=== PATIENT | female | born 1950 | race African-American/Black ===

== ENCOUNTER → 2017-09-06 | Outpatient (CLI) | payer OTHER | LOC: RAD 11:23 | DX: Z12.31 Encounter for screening mammogram for malignant neoplasm of breast (principal); M47.896 Other spondylosis, lumbar region ==

== ENCOUNTER → 2018-09-25 | Outpatient (CLI) | payer OTHER | LOC: BC 03:14 | DX: Z12.31 Encounter for screening mammogram for malignant neoplasm of breast (principal) ==

== ENCOUNTER 2019-01-19 08:53 | Inpatient (IN) | payer OTHER ==
[~2019-01-19] VITALS: Ht 160 cm; Wt 113.1 kg
[2019-01-19 09:27] LABS: ANION GAP 11 mmol/L (7-16); BUN 11 mg/dL (7-18); CALCIUM 9.4 mg/dL (8.5-10.1); CHLORIDE 102 mmol/L (98-107); CO2 26 mmol/L (21-32); CREATININE 0.9 mg/dL (0.6-1.0); GLUCOSE 147 mg/dL (74-106); POTASSIUM 3.4 mmol/L (3.5-5.1); SODIUM 139 mmol/L (136-145)
[2019-01-19 09:28] LABS: ABSOLUTE NEUTROPHILS 7.8 thou/uL (1.4-8.2); BASOPHILS 0.3 % (0.0-2.0); EOSINOPHILS 0.5 % (0.0-3.0); HEMATOCRIT 43.1 % (37.0-47.0); HEMOGLOBIN 14.3 gm/dL (12.0-15.0); LYMPHOCYTES 19.2 % (24.0-44.0); MCH 29.9 pg (26.0-34.0); MCHC 33.1 g/dL (28.0-37.0); MCV 90.2 fL (80.0-100.0); MONOCYTES 7.7 % (1.0-8.0); PLATELET COUNT 211 thou/uL (150-400); POLYS 72.3 % (36.0-66.0); RBC 4.78 mil/uL (4.20-5.00); RDW 16.3 % (10.5-14.5); WBC 10.8 thou/uL (4.0-11.0)
[2019-01-19 09:37] LABS: TROPONIN-I <0.06 ng/mL (<0.06)
[2019-01-19] MEDS ORDERED: HYDROCHLOROTHIA25 M2 PO (09:45)
[2019-01-19] MEDS ORDERED: VITAMIN D1000 UNI1 PO (09:46)
[2019-01-19] MEDS ORDERED: VITAMINC500 PO (09:46)
[2019-01-19] MEDS ORDERED: ALEVE220 MG PO (09:46)
[2019-01-19] MEDS ORDERED: VASOTEC10 MG PO (09:46)
[2019-01-19] MEDS ORDERED: KLOR-CON 1010 MEQ PO (09:46)
[2019-01-19] MEDS ORDERED: B-COMPLEX PLUS1 EACH PO (09:46)
--- NOTE | 2019-01-19 13:37 | EKG ---
[address] [place] [address] ELECTROCARDIOGRAM REPORT Name: MORENO VALVERDE Room #: 170-8 ADM IN M.R.#: [id number] ������������������ Admission: 01/19/19 ������������������ Attend Phys: Sumit Camilo DO Discharge: ������������������ Date of : 46 Report #: [id number] ����������������������������������������������������������������� [id number] THIS REPORT FOR: //name// [facility] Test Date: 2019-01-19 Test Time: 09:48:39 Pat Name: MORENO VALVERDE Department: Room: 170 Gender: F Technology Director: JESSICA : 1950 Requested By: Reyna Tirado Order Number: [id number] MD: David Barger Measurements Intervals Media Rate: 72 P: 28 VA: 124 QRS: 25 QRSD: 113 T: -11 QT: 414 QTc: 454 Interpretive Statements Sinus rhythm Premature atrial contractions present intraventricular conduction delay Low voltage, precordial leads Nonspecific ST-T wave changes No previous ECG available for comparison Electronically Signed On 01-19-2019 13:37:12 [employer] by David Barger [email or web address] ��������������������������������������������� <ELECTRONICALLY SIGNED> ���������������������������������������� By: David Barger MD ��������������������������������������������� 01/19/19 1337 7 David Barger MD /EPI
--- NOTE | 2019-01-19 14:31 | 2DMMODE ---
[facility] [employer] [place] [address] 2 D/M-MODE ECHOCARDIOGRAM Name: MORENO VALVERDE Room #: 170-8 ADM IN .R.#: [id number] ������������� Admission: 01/19/19 ������������� Attend Phys: Sumit Camilo, Discharge: ��� ������������� ��� Date of : 46 Date of Service: 01/19/19 1431 �� Report #: [id number] �������� ��������������������������������������������[id number] THIS REPORT FOR: //name// APPROVED REPORT Study performed: 01/19/2019 13:35:24 EXAM: Comprehensive 2D, Doppler, and color-flow Echocardiogram Patient Location: ER Status: routine BSA: 2.07 HR: 77 bpm BP: 113/54 mmHg Rhythm: NSR Other Information Study Quality: Poor/not all measurements takenTechnically Limited Technically limited study due to lung disease and artifact, morbid obesity. Indications CVA. Hx: HTN, tobacco abuse. 2D Dimensions RVDd: 29.13 mm IVSd: 12.29 (7-11mm) LVOT Diam: 19.77 (18-24mm) LVDd: 43.55 mm PWd: 12.13 (7-11mm) Ascending Ao: 30.61 (22-36mm) LVDs: 29.54 (25-40mm) Aortic Root: 29.94 mm Volumes Left Atrial Volume (Systole) Single Plane 4CH: 42.72 mL Aortic Valve AoV Peak Chan.: 1.59 m/s AO Peak Gr.: 10.14 mmHg LVOT Max P.20 mmHg LVOT Max V: 0.89 m/s UDAY Vmax: 1.72 cm2 Mitral Valve E/A Ratio: 0.9 [facility] [address] [place] [address] 2 D/M-MODE ECHOCARDIOGRAM Name: MORENO VALVERDE Room #: 170-8 ADM IN .R.#: [id number] ������������� Admission: 01/19/19 ������������� Attend Phys: Sumit Camilo, Discharge: ��� ������������� ��� Date of : 46 Date of Service: 01/19/19 1431 �� Report #: [id number] �������� ��������������������������������������������[id number] MV Decel. Time: 225.73 ms MV E Max Chan.: 0.80 m/s MV A Chan.: 0.91 m/s MV PHT: 65.46 ms IVRT: 69.20 ms Tricuspid Valve TR Peak Chan.: 2.87 m/s RAP Estimate: 5.00 mmHg TR Peak Gr.: 32.85 mmHg PA Pressure: 38.00 mmHg Left Ventricle The left ventricle is normal size. Regional wall motion is not well visualized but appears grossly normal. Mild concentric left ventricular hypertrophy. The overall left ventricular systolic function appears normal. LVEF is 60%. Mild diastolic dysfunction is present (impaired relaxation pattern). Right Ventricle Right ventricle is not well visualized but appears grossly normal in size and function. Atria The left atrium size is normal. Suboptimal images; bubble study not performed. The right atrium size is normal. Aortic Valve The aortic valve is grossly normal in structure. No aortic regurgitation is present. There is no aortic valvular stenosis. Mitral Valve The mitral valve is grossly normal in structure. There is no mitral valve regurgitation noted. No evidence of mitral valve stenosis. Tricuspid Valve The tricuspid valve is normal in structure. Mild tricuspid regurgitation. Estimated PAP is 35-40mmHg. Pulmonic Valve Pulmonic valve is not well visualized. Great Vessels The aortic root is normal in size. The ascending aorta is normal in size. IVC is normal in size and collapses >50% with [facility] [address] [place] [address] 2 D/M-MODE ECHOCARDIOGRAM Name: MORENO VALVERDE Room #: 170-8 ADM IN M.R.#: [id number] ������������� Admission: 01/19/19 ������������� Attend Phys: Sumit Camilo, Discharge: ��� ������������� ��� Date of : 46 Date of Service: 01/19/19 1431 �� Report #: [id number] �������� ��������������������������������������������[id number] inspiration. Pericardium There is no pericardial effusion. <Conclusion> The left ventricle is normal size. LVEF is 60%. Right ventricle is not well visualized but appears grossly normal in size and function. The aortic valve is grossly normal in structure. The mitral valve is grossly normal in structure. The tricuspid valve is normal in structure. Mild tricuspid regurgitation. Estimated PAP is 35-40mmHg. Pulmonic valve is not well visualized. The aortic root is normal in size. The ascending aorta is normal in size. There is no pericardial effusion. ��������������������������������������������� <ELECTRONICALLY SIGNED> ���������������������������������������� By: David Barger MD ��������������������������������������������� 01/19/19 1431 1431 1431 David Barger MD /INF
[2019-01-19 15:14] LABS: URINE BLOOD 1+ (Negative); URINE CLARITY CLEAR; URINE COLOR YELLOW; URINE GLUCOSE-RANDOM* NEGATIVE (Negative); URINE KETONES 2+ (Negative); URINE LEUKOCYTES 2+ (Negative); URINE NITRITE NEGATIVE (Negative); URINE PROTEIN (DIPSTICK) 1+ (Negative); URINE UROBILINOGEN >= 8.0 E.U./dl (0.2-1.0)
[2019-01-19 15:16] LABS: ICTOTEST (BILI CONFIRMATORY) Negative (Negative); URINE BILIRUBIN NEGATIVE (Negative)
[2019-01-19 15:32] LABS: AMORPHOUS PHOSPHATES Many /LPF (None Seen); CASTS None Seen /LPF (None Seen); MUCUS >6 Heavy strn/LPF (None Seen); SQUAMOUS >10 Many /LPF (0-3); URINE RBC 3-10 Few /HPF (0-2); URINE WBC 6-15 Few /HPF (0-5)
[2019-01-19 19:03] VITALS: BP 130/61
[2019-01-19 19:35] VITALS: BP 131/65
[2019-01-19 23:06] LABS: GLYCOHEMOGLOBIN (HGB A1C) 5.9 % (4.8-5.6)
[2019-01-20] VITALS: BP 132/69
[2019-01-20 04:27] VITALS: BP 150/77
[2019-01-20 06:20] LABS: HEMATOCRIT 39.2 % (37.0-47.0); HEMOGLOBIN 12.7 gm/dL (12.0-15.0); MCH 29.9 pg (26.0-34.0); MCHC 32.5 g/dL (28.0-37.0); MCV 92.1 fL (80.0-100.0); RBC 4.26 mil/uL (4.20-5.00); RDW 16.5 % (10.5-14.5); WBC 9.1 thou/uL (4.0-11.0)
[2019-01-20 06:43] LABS: ALBUMIN 3.2 g/dL (3.4-5.0); CALCIUM 8.3 mg/dL (8.5-10.1); CREATININE 0.7 mg/dL (0.6-1.0); MAGNESIUM 1.9 mg/dL (1.8-2.4); POTASSIUM 3.8 mmol/L (3.5-5.1); TOTAL BILIRUBIN 0.8 mg/dL (<0.1-1.0); TOTAL PROTEIN 7.3 g/dL (6.4-8.2)
--- NOTE | 2019-01-20 06:45 | NUR ---
PT MAKING SLOW PROGRESS TOWARDS GOALS. BRIEF NIH DONE WITH SCORE OF 4. PT RIGHT SIDED WEAK WITH RLE MUCH WEAKER THEN RUE. SPEECH IS SLURRED BUT INTELLIGIBLE. NOTED MRI RESULTS.
[2019-01-20 06:50] LABS: CHOLESTEROL 180 mg/dL (<200); HDL CHOLESTEROL 55 mg/dL (>40); LDL CHOLESTEROL 113 mg/dL (<100); TC:HDL 3.3 Ratio (Not establshd); TRIGLYCERIDE 62 mg/dL (<150); VLDL 12 mg/dL (<40)
[2019-01-20 08:02] VITALS: BP 153/90; BP 153/99
--- NOTE | 2019-01-20 10:51 | HC ---
[facility] [place] [address] CONSULTATION Name: MORENO VALVERDE Room #: 358-P ADM IN M.R.#: [id number] Admission: 01/19/19 ������������������ Attend Phys: Sumit Camilo DO Discharge: ������������������ Date of : 46 Report #: [id number] THIS REPORT FOR: //name// CC: Sumit Smith TYPE OF REPORT: Neurology consultation. HISTORY OF PRESENT ILLNESS: The patient is a 68-year-old female, I initially saw in the Emergency Room. The patient complains of 2 days of generalized weakness and slurred speech. These symptoms began on Tuesday morning when she woke. There has been no improvement in them since they began. The patient does not take a blood thinner. She does smoke a pack of cigarettes a day. Her was in the room, he does not smoke. She admits to having hypertension but denied having diabetes or high cholesterol. She has never had an event like this before. Overall, she feels that her legs are generally weak and one leg does not necessarily bother her more than another. She also feels that her arms are weak but for the past 2 days has had difficulty feeding herself with her right arm because of weakness. PAST MEDICAL HISTORY: Hypertension. PAST SURGICAL HISTORY: Unremarkable. MEDICATIONS: Hydrochlorothiazide 25 mg daily, Vasotec 20 mg daily, naproxen 220 mg t.i.d., vitamin C 500 mg daily, B vitamin daily, vitamin D 1000 units daily and potassium 10 mEq daily. ALLERGIES: CODEINE and ERYTHROMYCIN. PHYSICAL EXAMINATION: VITAL SIGNS: Blood pressure 113/54, pulse rate 79, respiratory rate 16 and bedside pulse oximetry 96% on room air. NEUROLOGICAL: The patient has a right facial droop. Motor exam demonstrates a moderate right hemiparesis. The leg is more affected than the arm. Plantar responses were mute. Reflexes were symmetrical throughout. Coordination demonstrated no evidence of dysmetria, although it was performed more slowly in the right upper extremity. Gait was not tested. LABORATORY DATA: White blood cell count 10.8; hemoglobin 14.3; hematocrit 43.1; MCV 90.2 and platelet count 211,000. Chemistry: Sodium 139, potassium 3.4, chloride 102, carbon dioxide 26, BUN 11, creatinine 0.9, GFR 75, glucose 147, magnesium 1.7 and calcium 9.4. Vitamin B12 1180. TSH 1.836. [address] [address] CONSULTATION Name: MORENO VALVERDE Room #: 358-P [facility] IN .R.#: [id number] Admission: 01/19/19 ������������������ Attend Phys: Sumit Camilo DO Discharge: ������������������ Date of : 46 Report #: [id number] IMAGING STUDIES: MRI of the head demonstrates a left pontine nlece-bp-mmhihlyx infarct. MRA of the head was limited secondary to motion artifact, but no definite intracranial vascular lesions were identified. 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 We discussed the fact that this might be a good time to reconsider smoking. I explained to her that smoking increases her risk for stroke. Her blood pressure appears to be well controlled; however, reviewing her lab work, I am concerned she may have diabetes and we will order a hemoglobin A1c in addition to a lipid profile to look for other causes of stroke. At this point, I would recommend aspirin 81 mg daily. I have also ordered an echocardiogram. She will also need physical therapy as I suspect there is also a component of deconditioning. She tells me that she has significant arthritis in her knees and that makes it difficult for her to exercise. I thank you for your kind referral of the patient and will continue to follow her with you. ��������������������������������������������� <ELECTRONICALLY SIGNED> ���������������������������������������� By: Debbie Robin DO ��������������������������������������������� 01/20/19 1051 1322 0056 Debbie Robin DO /nt
[2019-01-20 15:08] VITALS: BP 134/70
--- NOTE | 2019-01-20 19:37 | NUR ---
PATIENT ALERT AND ORIENTED WITH AT BEDSIDE. PATIENT OFFERED TO GET UP TO CHAIR SEVERAL TIMES DURING THE DAY AND EXPLAINED BENEFITS OF ACTIVITY AND GETTING OUT OF BED, BUT THE PATIENT REFUSED. PATIENT IS COMPLIANT IN USING SCD'S.
[2019-01-20 20:48] VITALS: BP 143/77
[2019-01-20 23:52] VITALS: BP 148/73
[2019-01-21 03:49] VITALS: BP 155/85
--- NOTE | 2019-01-21 05:43 | NUR ---
PT LYING IN BED. DENIES PAIN. DENIES NAUSEA. RESTING COMFORTABLY. NO NEEDS VOICED. CALL LIGHT WITHIN REACH. WILL CONTINUE TO PROVIDE FREQUENT OBSERVATION.
[2019-01-21 08:38] VITALS: BP 131/67
[2019-01-21 11:34] VITALS: BP 126/65
[2019-01-21 15:38] VITALS: BP 144/74
--- NOTE | 2019-01-21 18:01 | NUR ---
ASSUMED PATIENT CARE AT 0700. A/O X4, SLURRED SPEECH. PATIENT TOLERATED DIET. NIH X3. RIGHT LEG WEAK. MAX ASSISTED WHEN UP. SLOWLY TOARDS POC GOALS.
[2019-01-21 19:25] VITALS: BP 115/69
[2019-01-22 04:30] VITALS: BP 147/79
--- NOTE | 2019-01-22 06:02 | NUR ---
PT LYING IN BED. DENIES PAIN. RESTING COMFORTABLY. NO NEEDS VOICED. CALL LIGHT WITHIN REACH. WILL CONTINUE TO PROVIDE FREQUENT OBSERVATION.
[2019-01-22 07:59] VITALS: BP 125/65
[2019-01-22 10:16] LABS: HEMATOCRIT 40.1 % (37.0-47.0); HEMOGLOBIN 13.5 gm/dL (12.0-15.0); MCH 30.6 pg (26.0-34.0); MCHC 33.6 g/dL (28.0-37.0); MCV 91.2 fL (80.0-100.0); RBC 4.39 mil/uL (4.20-5.00); RDW 16.4 % (10.5-14.5); WBC 10.7 thou/uL (4.0-11.0)
[2019-01-22 10:31] LABS: ALBUMIN 3.1 g/dL (3.4-5.0); CALCIUM 8.8 mg/dL (8.5-10.1); CREATININE 0.9 mg/dL (0.6-1.0); MAGNESIUM 1.7 mg/dL (1.8-2.4); POTASSIUM 3.9 mmol/L (3.5-5.1); TOTAL BILIRUBIN 0.6 mg/dL (<0.1-1.0); TOTAL PROTEIN 7.5 g/dL (6.4-8.2)
--- NOTE | 2019-01-22 13:01 | NUR ---
ASSESSMENT: CM REVIEWED CHART AND MET WITH PATIENT AT THE BEDSIDE. PTS WAS PRESENT. PT WAS ADMITTED WITH SLURRED SPEECH AND RIGHT SIDED WEAKNESS. PT LIVES IN A TOWNHOUSE WITH HER . PT REPORTS NO STEPS TO ENTER THE TOWNHOME AND ABOUT 15 STEPS WITH HANDRAILS TO THE UPPER LEVEL. PT REPORTS SHE NORMALLY SLEEPS ON THE COUCH SO SHE DOES NOT HAVE TO USE THE STEPS. PT REPORTS THAT SHE AMBULATES INDEPENDENTLY BUT DOES HAVE A WALKER AT HOME SHE DOES NOT USE. PT REPORTS THAT SHE IS INDEPENDENT WITH ADLS. PT HAS NO HAD HH IN THE PAST NOR BEEN TO A SNF. 5N CONSULT WAS PLACED FOR PATIENT AND SHE IS A GOOD CANIDATE. PT WANTS TO DISCHARGE TO 5[facility] IF HER INSURANCE WILL AUTHORIZE IT. CM WILL CONTINUE TO FOLLOW TO ASSIST NEEDED.
[2019-01-22 15:19] VITALS: BP 114/74
--- NOTE | 2019-01-22 18:09 | NUR ---
ASSUMED PAIENT CARE AT 0700, A/O 4. RIGHT LEG WEAKNESS. MAX ASSISTED OUT OF BED. INCONTIUNE URINE. PATIENT VERY ANXIOS WITH TRANSFER, NOT TOWARDS POC GOALS,
[2019-01-22 20:05] VITALS: BP 135/81
[2019-01-23 03:35] VITALS: BP 139/65
--- NOTE | 2019-01-23 07:38 | NUR ---
SLEPT MOST OF SHIFT. REMAINS WITH SLURRED SPEECH BUT ALERT AND ORIENTED X4. PATIENT ASSIST'S WITH TURNS. VSS. FEMAL CATH CHANGED AT 0500 AND BRANDON CARE GIVEN. WORKING ON GOALS AND PLAN OF CARE FOR TRANSFER TO REHAB. PROGRESSING SLOWLY TOWARDS DISCHAREG GOALS. CONTINUE TO ASSES.
[2019-01-23 07:44] VITALS: BP 139/91
[2019-01-23] MEDS ORDERED: ATORVASTATIN CA10 MG PO (10:01)
[2019-01-23] MEDS ORDERED: ADULT LOW DOSE81 MG PO (10:01)
--- NOTE | 2019-01-23 10:39 | NUR ---
ASSUMED PATIENT CARE AT 0715. A&OX4. SOME PAIN BLE. NUMBNESS IN RIGHT LEG AND FINGERTIPS. NIH AT 5. NO CHANGES IN NIH FROM OVERNIGHT. PLAN IS TO DISCHARGE TO INPATIENT REHAB TODAY, WAITING ON INSURANCE AUTH. PATIENT WOULD BENEFIT GREATLY FROM REHAB. PATIENT WANTING TO GO TO REHAB. PHYSICAL THERAPY GOT PATIENT UP TO CHAIR. PROGRESSING TOWARD GOALS.
--- NOTE | 2019-01-23 13:36 | NUR ---
on-going assessment: cm reviewed chart and met with patient at the bedside. CM SPOKE WITH LIASON FROM WHO STATES THEY HAVE RECEIVED INSURANCE AUTH TO ACCEPT PATIENT TODAY. CM NOTIFIED PATIENT AND HER . PLANS ARE TO DISCHARGE TO ACUTE REHAB TODAY.
[2019-01-23 14:27] VITALS: BP 135/87
== END 2019-01-23 16:30 | DRG 65 ==
LOC: ER 08:53 → 3W 10:20 → EROBS 10:20 → 3W 18:49
PROVIDERS: Internal Medicine Geriatric Medicine; Nurse Practitioner Family; Psychiatry & Neurology Neurology; Student in an Organized Health Care Education/Training Program; ADMIT Family Medicine
DX: I63.9 Cerebral infarction, unspecified (principal); Z68.41 Body mass index [BMI] 40.0-44.9, adult; G81.91 Hemiplegia, unspecified affecting right dominant side; I10 Essential (primary) hypertension; F17.210 Nicotine dependence, cigarettes, uncomplicated; E66.9 Obesity, unspecified; E55.9 Vitamin D deficiency, unspecified; E87.6 Hypokalemia; R73.9 Hyperglycemia, unspecified; R13.10 Dysphagia, unspecified; M17.0 Bilateral primary osteoarthritis of knee; Z79.899 Other long term (current) drug therapy; Z88.1 Allergy status to other antibiotic agents; Z88.5 Allergy status to narcotic agent
CPT/HCPCS: 10879

== ENCOUNTER 2019-01-23 12:33 | Inpatient (IN) | payer OTHER ==
[~2019-01-23] VITALS: Ht 160 cm; Wt 112.0 kg
[~2019-01-23 12:33] MED LIST: ADULT LOW DOSE81 MG PO; ALEVE220 MG PO; ATORVASTATIN CA10 MG PO; B-COMPLEX PLUS1 EACH PO; HYDROCHLOROTHIA25 M2 PO; KLOR-CON 1010 MEQ PO; VASOTEC10 MG PO; VITAMIN D1000 UNI1 PO; VITAMINC500 PO
[2019-01-23 16:29] VITALS: BP 125/70
[2019-01-23 19:52] VITALS: BP 115/62
--- NOTE | 2019-01-24 01:27 | NUR ---
PT ADMITTED TO [address] [place] [address] AFTER HAVING A STROKE. ADMIT HX AND ASSESSMENT COMPLETED. CONSENTS SIGNED. PT DENIES PAIN/N/SOA. ASST WITH REPOSITION FOR COMFORT. EXTERNAL FEMALE CATH DRAINING LARGE AMOUNTS OF YELLOW URINE. SLEEPING WELL. WILL CONTINUE TO MONITOR FREQUENTLY.
[2019-01-24 05:17] LABS: HEMATOCRIT 41.6 % (37.0-47.0)
[2019-01-24 05:18] LABS: HEMOGLOBIN 13.9 gm/dL (12.0-15.0); MCH 30.6 pg (26.0-34.0); MCHC 33.5 g/dL (28.0-37.0); MCV 91.5 fL (80.0-100.0); RBC 4.55 mil/uL (4.20-5.00); RDW 16.1 % (10.5-14.5); WBC 23.2 thou/uL (4.0-11.0)
[2019-01-24 05:24] LABS: CALCIUM 8.9 mg/dL (8.5-10.1); CREATININE 0.6 mg/dL (0.6-1.0)
[2019-01-24 05:43] LABS: POTASSIUM 4.6 mmol/L (3.5-5.1)
[2019-01-24 07:41] VITALS: BP 106/69
--- NOTE | 2019-01-24 14:49 | NUR ---
Nutrition: Pt admit to rehab with acute CVA. Received consult. On heart healthy diet, dislikes food. Aware of alternative menu. Obtained preferences and assisted in ordering meals. Otherwise appetite is good. Extreme class 3 obesity with BMI 43. Offered dietary education but pt refused at this time. Several guests in room. Will follow for receptiveness to education at later date. Consider low nutrition risk.
--- NOTE | 2019-01-24 15:27 | NUR ---
CM assessment completed at bedside with the pt and her spouse. The pt was admitted to rehab for a cva with rt hemiparesis.Cdl B Driver also spoke with the pt's dtr Sanjuanita with pt consent. Sanjuanita lives in [facility] and will be coming in town Tuesday thru Tuesday to see how the pt is progressing. She will also be talking with the pt about moving back to [facility] to live with her so she can help take care of her. Currently the pt and her spouse live in a [facility] with no steps to enter and 15 up to the bedroom and full bathroom. She reports that she has not been able to do the steps for more than a year and she uses a 1/2 bath on the main level and sleeps on the couch. She has a rolator walker (4wheels/seat) but does not really use it much. She has had increasing struggles with her bilat knee pain which also has limited her ability to be active outside her home. She does continue to do basic adl's, cooking and laundry within the home. She smokes a pack a day and has been counseled to stop smoking. Her pcp is Dr. Smith. She has had steriod shots in her knees as she has not wanted to have knee replacement surgery. Her spouse does the grocery shopping. The pt has a hx of some urinary incontinence prior to admission. Pt's goal is to return home to her prior level of functioning. Limiting issues today is her ankle/foot pain (r/o gout). The pt's dtr does have a home with a bedroom and full bath on the main level if she chooses to go home with her at ne. They will discuss as a family this weekend. Dtr to bring in the pt's dpoa for HC document. Cm to call the pt's dtr after team conference with an update as well as to update the pt and spouse. The pt is agreeable for cm to involve her dtr in ne planning efforts.
--- NOTE | 2019-01-24 16:43 | NUR ---
ASSUMED CARE AT APPROX 0715. PATIENT A/O X4. SLURRED SPEECH NOTED, RT SIDED WEAKNESS. PATIENT TRANSFERS MAX A 2-3 PERSONS, SLIDE BOARD, BED <> WC. MINIMAL PARTICIPATION IN THERAPY THIS DATE R/T PAIN. PROVIDER NOTIFIED, ORDERS FOR TOPICAL PAIN MEDS RECEIVED- PATIENT REPORTED SHE WOULD REFUSE NARCOTIC MEDICATIONS. PATIENT TOLERATED VOLTAREN GEL, REPORTS RELIEF OF BILATERAL ANKLE AND KNEE PAIN. PATIENT TOILETED [place] [facility] THIS DATE, URINE NOT COLLECTED AT THAT TIME, AWAITING URINE SAMPLE FOR UA. PATIENT AWARE. REFUSED TOILETING THIS AFTERNOON, EXTERNAL CATHETER IN PLACE TO SUCTION. 300 ML CLEAR YELLOW URINE OUT THUS FAR. FALL PRECAUTIONS IN PLACE. PATIENT TURNED Q2 WHILE IN BED. WILL CONTINUE TO MONITOR.
[2019-01-24 20:27] VITALS: BP 106/88
--- NOTE | 2019-01-25 02:59 | NUR ---
TURNED TO SIDE. DECLINES OPIOD MEDS, WE PLAN NAPROSYN IN AM PRIOR TO PT. EXTERNAL CATH IN PLACE WITH CLEAR YELLOW/CHET URINE. PLEASANT AND RESTING WELL. APPRECIATES VOLTAREN GEL TO LOWER EXTREMITIES.
[2019-01-25 05:21] LABS: URINE BILIRUBIN NEGATIVE (Negative); URINE BLOOD NEGATIVE (Negative); URINE CLARITY CLEAR; URINE COLOR YELLOW; URINE GLUCOSE-RANDOM* NEGATIVE (Negative); URINE KETONES NEGATIVE (Negative); URINE LEUKOCYTES-REFLEX NEGATIVE (Negative); URINE NITRITE-REFLEX NEGATIVE (Negative); URINE PROTEIN (DIPSTICK) NEGATIVE (Negative); URINE UROBILINOGEN 0.2 E.U./dl (0.2-1.0)
[2019-01-25 08:49] VITALS: BP 123/65
--- NOTE | 2019-01-25 10:53 | NUR ---
ASSUMED CARE AT APPROX 0715. PATIENT A/O X4. C/O PAIN IN BILATERAL LOWER EXTREMITIES. VOLTAREN GEL APPLIED. MEDICATED FOR PAIN PRIOR TO THERAPY. VSS. PARTICIPATING IN THERAPIES, REPORTEDLY TRANSFERING BETTER. PATIENT UP TO WHEELCHAIR X2 ASSIST, 2 PERSON ASSIST IN BATHROOM. PROVIDER ORDERED CXR AND LABS, UA NEGATIVE. PATIENT RESTING IN BED ON RIGHT SIDE AT THIS TIME. BRIEFS OFF, EXTERNAL CATH IN PLACE WHILE IN BED. FALL PRECAUTIONS IN PLACE. WILL CONTINUE TO MONITOR.
[2019-01-25 11:09] LABS: ABSOLUTE NEUTROPHILS 8.6 thou/uL (1.4-8.2); BASOPHILS 0.4 % (0.0-2.0); HEMATOCRIT 40.5 % (37.0-47.0); HEMOGLOBIN 13.4 gm/dL (12.0-15.0); LYMPHOCYTES 15.6 % (24.0-44.0); MCH 29.9 pg (26.0-34.0); MCHC 33.2 g/dL (28.0-37.0); MCV 90.1 fL (80.0-100.0); MONOCYTES 4.9 % (1.0-8.0); POLYS 78.1 % (36.0-66.0); RBC 4.49 mil/uL (4.20-5.00); RDW 15.8 % (10.5-14.5)
[2019-01-25 12:08] LABS: PLATELET COUNT 186 thou/uL (150-400)
--- NOTE | 2019-01-25 16:04 | NUR ---
cm notified that pt and wanted to speak with cm and had question. already gone for now. cm called spoke with milton, "got wind of some information and it is ok for daughter jason to have limited information, how ever no changes and all decision go through johnna and i. i am her dpoa first and then daughter jason"/milton and pt. education that as long as johnna is able to make her needs know, decision will go through pt. if for some reason a pt was unable to make needs know, that is when dpoa is used " understand thank you for calling"/milton. cm passed on information to 5n team. will cont following as needed for dc need.
[2019-01-25 20:01] VITALS: BP 116/52
--- NOTE | 2019-01-26 03:04 | NUR ---
Assumed care of pt at 1915. Pt alert and oriented x4. IV antibiotics infused as ordered. Denies cough or shortness of air. Turned q 2 hrs. External catheter on, leaking at times. Pt c/o pain in bilat knees, ankles, and toes. Voltaren gel applied as ordered. Has appeared to be sleeping when chaecked on hourly rounds. Fall precautions in place.
[2019-01-26 08:30] VITALS: BP 121/74
--- NOTE | 2019-01-26 16:57 | NUR ---
ASSUMED CARE OF PT AT 0715. PT IS A&OX4. HAS SOME SLURRED SPEECH, BUT IS ABLE TO MAKE HERSELF UNDERSTOOD. PT IS STABLE. DENIES PAIN. IS UP WITH MAX ASSIST X2, GB, WAKER. PT HAS TO BE REMINDED TO NOT SIT DOWN UNTIL ABLE TO FEEL THE CHAIR ON THE BACK OF HER LEGS. PT TENDS TO JUST FLOP DOWN BEFORE BEING IN PROPER POSITION. FALL PRECAUTIONS & HOURLY ROUNDING MAINTAINED. PT REFUSED AFTERNOON THERAPY. INSISTED ON GOING TO BED EARLY. IS Q2H TURN. IS ABLE TO ASSIST WITH TURNING SELF IN BED. LABS & VITALS REVIEWED. PT IS CURRENTLY IN BED. CALL LIGHT WITHIN REACH. WILL CONTINUE TO MONITOR.
[2019-01-26 21:00] VITALS: BP 129/44
--- NOTE | 2019-01-27 03:28 | NUR ---
ASSUMED CARE OF PT AT 1915. PT ALERT AND ORIENTED X4. UP TO BSC DURING EVENING HOURS, VOIDED CLEAR YELLOW URINE. EXTERNAL CATH APPLIED DURING THE NIGHT. TURNED Q 2 HRS. IV ANTIBIOTICS INFUSED ORDERED. DENIES PAIN, NAUSEA OR DYPSNEA. HAS APPEARED TO BE SLEEPING WHEN CHECKED ON HOURLY ROUNDS. FALL PRECAUTIONS IN PLACE.
[2019-01-27 07:30] VITALS: BP 120/70
[2019-01-27 08:48] LABS: HEMATOCRIT 38.8 % (37.0-47.0); HEMOGLOBIN 13.1 gm/dL (12.0-15.0); MCH 30.2 pg (26.0-34.0); MCHC 33.7 g/dL (28.0-37.0); MCV 89.5 fL (80.0-100.0); RBC 4.34 mil/uL (4.20-5.00); RDW 15.4 % (10.5-14.5); WBC 10.8 thou/uL (4.0-11.0)
[2019-01-27 08:56] LABS: CALCIUM 9.2 mg/dL (8.5-10.1); CREATININE 0.8 mg/dL (0.6-1.0); POTASSIUM 3.9 mmol/L (3.5-5.1)
--- NOTE | 2019-01-27 19:46 | NUR ---
ASSUMED CARE OF PT AT 0715. REPORTS SLEPT GOOD LAST NIGHT. PT WAS ON EXTERNAL CATH LAST NIGHT AND HAD 800CC CHET URINE THIS AM.PT IS A&OX4. HAS SOME SLURRED SPEECH, BUT IS ABLE TO MAKE HERSELF UNDERSTOOD. PT UP WITH MAX ASSIST WITH X1 0R X2, GB, WAKER. OT GOT PT UP AND GAVE SPONGE BATH. PT C/O CONSTIPATION. GAVE PRN LAXATIVE HAD BM X2 TODAY. REASSESSMENT PER CHART. FALL PRECAUTIONS & HOURLY ROUNDING MAINTAINED. Q2H TURN. PT HAS BEEN UP FOR THERAPY AND WAS UP FOR BATHROOM 5X TODAY. UP TO DINNING ROOM FOR MEALS. HAS GOOD APPETITE. DENIES PAIN. ONLY HAS PAIN ON FEET WHEN STANDING. IS ABLE TO ASSIST WITH TURNING SELF IN BED. LABS & VITALS REVIEWED. DR. PIMENTEL CAME TO SEE PT THIS AM. D/C IV ZOSYN AND START PT ON PO ABT TODAY. IV ON RIGHT FA D/C PER PT REQUEST. XRAY DONE TODAY TO FOLLOW UP WITH PREVIOUS PNEUMONIA. GAVE REPORT TO NIGHT NURSE TO CONTINUE TO MONITOR. PT IS CURRENTLY IN BED. CALL LIGHT WITHIN REACH. CHECKED FREQUENTLY FOR NEEDS AND SAFETY.
[2019-01-27 20:31] VITALS: BP 163/66
--- NOTE | 2019-01-28 06:00 | NUR ---
SLEEPING WELL OVERNIGHT WITH EXTERNAL CATHETER IN PLACE. REMOVED AT THIS TIME PATIENT HAS SUDDENLY HAD MODERATE SOFT BROWN STOOL. APPRECIATES VOLTAREN GEL TO KNEES AND ANKLES.
[2019-01-28 09:47] VITALS: BP 121/61
--- NOTE | 2019-01-28 11:06 | NUR ---
ASSUMED CARE OF PT AT 0730. PT IS A&OX4. HAS SLURRED SPEECH, BUT IS ABLE TO BE UNDERSTOOD. PT IS STABLE. REPORTS PAIN IN BILAT KNEES, ANKLES, & TOES THAT IS BEING TREATED WITH VOLTAREN. PT WOULD LIKE TO SPEAK WITH DOCTOR ABOUT TAKING A STRONGER PAIN MED THAT IS NOT A NORCOTIC. PT IS UP WITH 1-2 MAX ASSIST, GB. WALKER TO BSC. PT MUST BE ENCOURAGED TO BE IN PROPER POSITION BEFORE SITTING. FALL PRECAUTIONS & HOURLY ROUNDING CONTINUED THIS SHIFT. PT IS INCONT TO B&B. IS Q2H TURN, BUT IS ABLE TO ASSIST WITH MOVING SELF IN BED. LABS & VITALS REVIEWED. DAUGHTER & GRAND-DAUGHTER IN ROOM. WILL CONTINUE TO MONITOR.
[2019-01-28 19:43] VITALS: BP 137/59
--- NOTE | 2019-01-29 04:07 | NUR ---
ASSUMED PT CARE 0. PT ALERT AND ORIENTED. REASSESSMENT COMPLETED. VSS. PT REPORTS PAIN IN KNEES, ANKLES AND TOES. FEMALE EXTERNAL CATHETER APPLIED AT BEDTIME. WILL CONTINUE POC UNTIL EOS.
--- NOTE | 2019-01-29 08:38 | NUR ---
ASSUMED CARE OF PT AT 0730. REPORTS SLEPT GOOD LAST NIGHT. USES EXTERNAL FEMALE CATH AT NIGHT. PT IS A&OX4. HAS SLURRED SPEECH, BUT IS ABLE TO BE UNDERSTOOD. REPORTS PAIN IN ANKLES & TOES 8/10 VOLTAREN GIVEN. RIGHT ANKLE WARM. PT SAID SHE FELL COUPLE TIME PRIOR ADMISSION. NOTIFIED WHEN HE MADE ROUND. XRAY OBTAINED FOR PAIN AFTER PRIOR FALL AT HOME. PT IS UP WITH 1 MAX ASSIST, GB. WALKER TO [facility] [place] FEET PAIN. PT MUST BE ENCOURAGED TO BE IN PROPER POSITION BEFORE SITTING. FALL PRECAUTIONS & HOURLY ROUNDING CONTINUED THIS SHIFT. OFFER TOILETING FREQUENTLY SINCE PT IS INCONT TO B&B. VITALS REVIEWED. B/P 114/58,HR 73. HELD B/P MEDS ORDERED. GAVE MORNING MEDS. REASSESSMENT PER CHART. LUNGS DIMINISHED. CONTINUE TO BE ON ORAL ABT FOR PNA WITHOUT ADVERSE REACTION NOTED. PT IS UP TO DINNING ROOM FOR BREAKFAST. ST IS WORKING ON HER VITAL STIM AT THIS MOMENT. IS WITH PT. FALL PRECAUTION IN PLACE. WILL CONTINUE TO MONITOR.
[2019-01-29 09:45] VITALS: BP 114/58
--- NOTE | 2019-01-29 14:29 | NUR ---
love notified by bedside nurse that pt and wanted to talk about dcp. love spoke with johnna, " my just left you can call him on his cell"/johnna. love spoke with milton " after visiting with our daughter there is come equip what to go head and get for her at home to make easier, she is not going to be able to seep on polo coach any longer and would like her to get hospital bed. when do you think she will be dc home?"/milton. education on team meeting and will be communication with team on what kids of dme she will benefit from at home. " ok then thank you, will talk tomorrow after the meeting"/milton
[2019-01-29 19:30] VITALS: BP 137/67
--- NOTE | 2019-01-30 01:30 | NUR ---
UP TO BS FOR 200 CC VOID, OTHERWISE USING EXTERNAL CATHETER OVERNIGHT. TURNED TO RIGHT SIDE BY HERSELF AND THIS MORNING WITH A LITTLE HELP AND A PILLOW TO KEEP IN PLACE ON SIDE,
--- NOTE | 2019-01-30 08:36 | NUR ---
ASSUMED CARE OF PT AT 0730. REPORTS SLEPT GOOD LAST NIGHT. USES EXTERNAL FEMALE CATH AT NIGHT HAD 450CC CHET URINE THIS AM. PT IS A&OX4. HAS SLURRED SPEECH, BUT IS ABLE TO BE UNDERSTOOD. REPORTS PAIN IN ANKLES & TOES 8/10 VOLTAREN GIVEN. REQUESTED NAPROXEN BEFORE THERAPY TODAY. VSS ON RA. B/P 116/63, HR 77 B/P MEDS NOT GIVEN. NAPROXEN AND OTHER MORNING MEDS GIVEN. XRAY ON LEFT ANKLE NEGATIVE STILL WAITING FOR RIGHT ANKLE XRAY RESULT. PT IS UP WITH 1 MAX ASSIST, GB. [place]ALK[place] [facility] [place]. FALL PRECAUTIONS & HOURLY ROUNDING CONTINUED THIS SHIFT. OFFER TOILETING FREQUENTLY SINCE PT IS INCONT TO B&B. REASSESSMENT PER CHART. LUNGS DIMINISHED. ENCOURAGED PT TO USE I.S AND DEEP BREATHING. CONTINUE TO BE ON ORAL ABT FOR PNA WITHOUT ADVERSE REACTION NOTED. PT IS UP TO DINNING ROOM FOR BREAKFAST. ST IS WORKING ON HER VITAL STIM AT THIS MOMENT. IS WITH PT. FALL PRECAUTION IN PLACE. WILL CONTINUE TO MONITOR.
[2019-01-30 09:27] VITALS: BP 116/63
--- NOTE | 2019-01-30 12:43 | NUR ---
team meeting, recommendations: re team with possible 02/14/19 dc. will discuss dme equip next team.
[2019-01-30 19:42] VITALS: BP 125/54
--- NOTE | 2019-01-31 00:58 | NUR ---
CARE ASSUMED AT 1900, PATIENT WAS IN BED AWAKE.PATIENT AOX4 MAKES NEEDS KNOWN. PATIENT TURNED Q [address] IN [address], CALL LIGHT AND PERSONAL ITEMS WITHIN REACH. PATIENT NEED MINIMUM ASSISTANCE WITH ADL, BED MOBILITY AND TOILETING. PATIENT INCONTINENT, PATIENT HAS EXTERNAL CATHETER. PERICARE AND BARRIER CREAM APPLIED NEEDED. PATIENT IS A Q 2 TURN. PATIENT IS CALM AND COOPERATIVE WITHCARE AND MEDICATION. PATIENT IN BED ASLEEP AT THIS TIME BREATHING REGULAR AND UNLABOURED.
[2019-01-31 07:45] VITALS: BP 116/63
--- NOTE | 2019-01-31 09:35 | NUR ---
Nutrition: Pt requested to speak with RD for issues with diet order and information on foods she can have for birthday this weekend. She is unhappy with heart healthy diet order. Suggested pt speak w/ her doctor regarding changes to diet. Discussed eating birthday foods in moderation. Remains low risk.
--- NOTE | 2019-01-31 17:32 | NUR ---
ASSUMED CARE AT APPROX. 0715. PATIENT IS A&OX4. MEDICATED FOR PAIN PRIOR TO THERAPY. VITALS STABLE. PATIENT PARTICIPATED IN THERAPIES. SWALLOW PRECAUTIONS IN PLACE. PATIENT AND SPOUSE EDUCATED IN PNEUMONIA AND ANTIBIOTIC COURSE. PATIENT ABLE TO MAKE NEEDS KNOWN. INCONTINENT OF URINE X1 ON THIS DATE. FALL PRECAUTIONS IN PLACE. SPOUSE AT BEDSIDE. WILL CONTINUE TO MONITOR.
[2019-01-31 19:28] VITALS: BP 132/67
--- NOTE | 2019-02-01 03:31 | NUR ---
ASSUMED CARE OF PT AT 1915. PT ALERT AND ORIENTED X3. DENIES PAIN, NAUSEA OR DYPSNEA. EXTERNAL HERNANDEZ PLACED AT HS. hAS APPEARED TO BE SLEEPING WHEN CHECKED ON HOURLY ROUNDS. FALL PRECAUTIONS IN PLACE.
[2019-02-01 08:55] VITALS: BP 123/90
[2019-02-01 14:06] VITALS: BP 146/95
--- NOTE | 2019-02-01 18:33 | NUR ---
RESUMED CARE OF PATIENT AT APPROXIMATELY 0715. PATIENT IS A&O X4. PATIENT WAS MEDICATED FOR PAIN PRIOR TO THERAPIES AND PARTICIPATED IN ALL SCHEDULED THERAPIES THIS SHIFT. VITAL SIGNS STABLE. PATIENT ABLE TO VERBALIZE NEEDS. PATIENT WAS CONTINENT OF BOWEL AND BLADDER THIS SHIFT, EXTERNAL CATHETER IN PLACE. VA FORM SIGNED BY PROVIDER AND PLACED ON CHART, PATIENT IS AWARE. FALL PRECAUTIONS IN PLACE. WILL CONTINUE TO MONITOR PATIENT.
[2019-02-01 19:42] VITALS: BP 126/61
--- NOTE | 2019-02-02 00:35 | NUR ---
PT ALERT AND ORIENTED X 4. EXTERNAL FEMALE CATH PATENT WITH CLEAR YELLOW URINE. PT DENIES PAIN OR DISCOMFORT. TURNED Q2H. BED ALARM ON FOR SAFETY. PT APPEARS TO BE SLEEPING IN BETWEEN TURNS.
[2019-02-02 07:15] VITALS: BP 121/63
--- NOTE | 2019-02-02 13:57 | NUR ---
PATIENT ALERT AND ORIENTED AND SITTING IN CHAIR WITH AT BEDSIDE. PATIENT ADMITTED TO PREVIOUSLY SMOKING AND DID NOT SAY SHE WOULD STOP SMOKING UPON DISCHARGE. SUCTION CATHETER WORKED WELL FOR PATIENT OVERNIGHT SO PATIENT DIDN'T HAVE TO GET OUT OF BED. SHE WOULD LIKE TO USE IT AGAIN THIS EVENING. PATIENT PARTICIPATING IN REHAB.
--- NOTE | 2019-02-02 19:29 | NUR ---
ASSUMED CARE AT 1500, DENIES ANY PAIN, NAUSEA. WILL CONTINUE TO ASSESS AND ASSIST WITH ADLs NEEDED.
[2019-02-02 19:54] VITALS: BP 114/53
--- NOTE | 2019-02-03 04:33 | NUR ---
ASSUMED CARE OF PT AT 1915. PT ALERT AND ORIENTED X3. REPOSITIONED Q 2 HRS. EXTERNAL FEMALE CATH IN PLACE, LEAKS AT TIMES. HAS APPEARED TO BE SLEEPING WHEN CHECKED ON HOURLY ROUNDS. FALL PRECAUTIONS IN PLACE.
[2019-02-03 07:30] VITALS: BP 103/65
--- NOTE | 2019-02-03 10:25 | NUR ---
ASSUMED CARE OF PT AT 0730. REPORTS SLEPT GOOD LAST NIGHT. USES EXTERNAL FEMALE CATH AT NIGHT HAD 500CC CHET URINE THIS AM. B/P 103/65, HR 68, ENCOURAGED PT TO DRINK MORE. MORNING MEDS GIVEN, HELD B/P MEDS. EDUCATED PT TO DRINK MORE TO FLUSH HER KIDNEY AND KEEP BRAIN PERFUSION. PT IS A&OX4. HAS SLURRED SPEECH, BUT IS ABLE TO BE UNDERSTOOD. REPORTS PAIN IN ANKLES & TOES VOLTAREN GIVEN, TOOK NAPROXEN SCHEDULE. PAIN IS UNDER CONTROL. PT UP IN WC ATE 100% BREAKFAST. REASSESSMENT PER CHART. LAST BM WAS 2 DAYS AGO. DENIES CONSTIPATION. LUNG SOUNDS BETTER. CHEST XRAY CLEAR NOW, FINISHED LAST ABT YESTERDAY. WITH 1 MOD ASSIST, GB. FAIRCHILD. FALL PRECAUTIONS & HOURLY ROUNDING CONTINUED THIS SHIFT. CALL LIGHT WITHIN REACH. CHECK HOURLY FOR NEEDS AND SAFETY.
[2019-02-03 21:38] VITALS: BP 118/57
--- NOTE | 2019-02-04 02:23 | NUR ---
assumed care at approx 1900 evening 02/03. pt lying in bed with head of bed elevated resting denies complaints. pt alert and oriented x4 appropriate and cooperative. pt appears to be sleeping soundly with hourly rounding checks. asssiting with turning. bed alarm on and call light in reach. will continue to monitor.
--- NOTE | 2019-02-04 17:32 | NUR ---
ASSUMED CARE AT APPROX 0715. PATIENT A/O X4. DENIES PAIN, REPORTS PAIN IS MANAGEABLE WITHOUT VOLTAREN GEL THIS DATE. VSS, BP MEDS HELD PER PARAMETERS. PATIENT TOLERATED BEING UP IN CHAIR MOST OF SHIFT, REQUESTED TO STAY UP. TOILETING X1 ASSIST. FALL PREAUTIONS IN PLACE. AT BEDSIDE. ABLE TO MAKE NEEDS KNOWN. WILL CONTINUE TO MONITOR.
[2019-02-04 20:38] VITALS: BP 119/96
--- NOTE | 2019-02-05 05:42 | NUR ---
PT AMBULATING TO BATHROOM WITH GAIT BELT, WALKER AND ASSIST X1 AND IS TOLERATING FAIR. DENIES PAIN AT THIS TIME. RESTING COMFORTABLY. NO NEEDS VOICED. CALL LIGHT WITHIN REACH. WILL CONTINUE TO PROVIDE FREQUENT OBSERVATION.
[2019-02-05 07:10] VITALS: BP 117/72
--- NOTE | 2019-02-05 11:37 | NUR ---
ASSUMED CARE OF PT AT 0730. REPORTS SLEPT GOOD LAST NIGHT. USES EXTERNAL FEMALE CATH AT NIGHT HAD 45CC ORANGE URINE THIS AM. MORNING MEDS GIVEN. HELD B/P, B/P 117/72,HR 66. PT HAS BEEN DRINK MORE NOW. SLURRED SPEECH IS GETTING BETTER. PAIN IS BETTER ON BLE AND MANAGE WELL WITH NAPROXEN EARLY IN THE AM. PAIN IN ANKLES & TOES VOLTAREN GIVEN ORDERED. REASSESSMENT PER CHART. HAD LARGE SOFT BM BEFORE OT GAVE HER A SHOWER. OFFERED SUPPORTIVE CARE. ENCOURAGED PT TO VOICE HER NEEDS AND GO OUT TO DINNING ROOM FOR MEALS. PT REFUSED TO GO TO DINNING ROOM BECAUSE SHE WANTS TO WATCH TV WHILE EATING. NOT ABLE TO CONVINCE HER TO GO TO DINNING ROOM, BUT SHE SAID SHE WILL DO HER BEST WITH THERAPIST. UP WITH 1X MOD ASSIST, GB. FAIRCHILD. FALL PRECAUTIONS & HOURLY ROUNDING CONTINUED THIS SHIFT. CALL LIGHT WITHIN REACH. CHECK HOURLY FOR NEEDS AND SAFETY.
[2019-02-05 19:50] VITALS: BP 128/72
[2019-02-06 08:00] VITALS: BP 138/69
--- NOTE | 2019-02-06 13:25 | NUR ---
team meeting, recommendation: re team, possible , fww, shower bench home health ( pt, ot, st, bath aid, nursing, and sw). will cont following as needed for dc needs.
--- NOTE | 2019-02-06 16:02 | NUR ---
ASSUMED CARE OF PT AT 0730. USES EXTERNAL FEMALE CATH AT NIGHT, HAD LARGE OUT AMOUNT OF URINE AND COUPLE BM LAST NIGHT PER NIGHT NURSE AFTER PT TOOK MAALOX FOR INDIGESTION. MORNING MEDS GIVEN REASSESSMENT PER CHART. OFFERED SUPPORTIVE CARE. ENCOURAGED PT TO VOICE HER NEEDS. PT UP FOR BREAKFAST AT DINNING ROOM AND PREFERS TO EAT IN ROOM WITH HER . UP WITH 1X MOD ASSIST, GB. FAIRCHILD. TEAM CONFERENCE TODAY, PT WILL BE DISCHARGE NEXT TUE. FALL PRECAUTIONS & HOURLY ROUNDING CONTINUED THIS SHIFT. CALL LIGHT WITHIN REACH. CHECK HOURLY FOR NEEDS AND SAFETY.RESTING IN BED AT THIS MOMENT. AT BEDSIDE.
--- NOTE | 2019-02-06 16:54 | NUR ---
FAXED REFERRAL TO [facility] SEE IF PT. HAS QUALIFYING DX.SPOKE WITH LESLIE AND SHE REVIEW REFERRAL. ANTICIPATE DC 02/14. DCP TO FOLLOW.
--- NOTE | 2019-02-06 17:06 | NUR ---
FAXED REFERRAL TO [facility] TO SEE IF PT. HAS A QUALIFYIHG DX FOR A HOSPITAL BED SPOKE WITH LESLIE AND SHE WILL REVIEW. ANTICIPATE DC 02/14. DCP TO FOLLOW.
[2019-02-06 17:59] VITALS: BP 134/62
[2019-02-06 20:00] VITALS: BP 130/73
--- NOTE | 2019-02-07 02:35 | NUR ---
ASSUMED CARE OF PT AT 1915. PT ALERT AND ORIENTED X4. C/O NAUSEA DURING EVENING, RELIEVED WITH PO ZOFRAN. NO EMESIS. ABDOMEN IS SOFT WITH HYPOACTIVE BOWEL SOUNDS, PT REPORTS PASSING FLATUS. AMBULATES TO BATHROOM TO VOID, IS INCONT PRIOR TO GETTING UP. HAS APPEARED TO BE SLEEPING WHEN CHECKED ON HOURLY ROUNDS. FALL PRECAUTIONS IN PLACE.
[2019-02-07 08:54] VITALS: BP 119/80
--- NOTE | 2019-02-07 10:02 | NUR ---
ASSUMED CARE AT 0700. PATIENT IS ALERT AND ORIENTEDX4. PATIENT UREÑA'S, LEARNING AND DEVELOPMENT CONSULTANT ARE EQUAL. LUNGS ARE CLEAR, ABD IS SOFT WITH BSX4. UP TO THE BATHROOM TO VOID. CHET COLORED URINE. FALL AND SAFETY PROTOCOLS IN PLACE. DENIES ANY PAIN AT THIS TIME. CONTINUES TO PROGRESS TOWARDS D/C GOALS. WILL CONTINUE TO MONITER.
--- NOTE | 2019-02-07 12:33 | NUR ---
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 Intake recorded as 75-100% of meals. Occasionally skips meals however. Continue to c/o dislike of foods/diet order. Knows how to order meals. Discussed possible diet liberalization with ST has pt wants vegetable soup-to trial tomorrow. Discussed need for pt to remain on heart healthy diet and provided diet review/materials to pt/family. Continue as low risk.
--- NOTE | 2019-02-07 15:00 | NUR ---
Patient participated in community reintegration on 02/07/19 with Physical Therapy. Refer to documentation by PT.
[2019-02-07 20:51] VITALS: BP 118/59
--- NOTE | 2019-02-08 04:33 | NUR ---
ASSESSMENT: PT REMAIN ALERT AND ORIENT TIMES FOUR. UP WITH MOD INDEP WITH GB AND WALKER TO BR. STEADY GAIT. PT STATE THAT HER STRENGHT IS A LOT BETTER SINCE HER ADMISSION AND THAT HE PAIN LEVEL HAD DECREASED IN HER ANKLES AND FEET. VSS, AFEBRILE. SLOW PROGRESS TOWARDS DC GOALS. WILL CONTINUE TO MONITOR.
--- NOTE | 2019-02-08 08:05 | NUR ---
ASSUMED CARE AT 0700. PATIENT IS ALERT AND ORIENTED X4. PATIENT UREÑA'S, ASSISTANCE COORDINATOR ARE EQUAL. LUNGS ARE CLEAR. ABD IS SOFT WITH BSX4. UP WITH ASSIST OF 1 STAFF GAIT BELT AND WALKER. UP IN BED FOR BREAKFAST. FALL AND SAFETY PROTOCOLS IN PLACE. DENIES PAIN AT THIS TIME. CONTINUES TO PROGRESS TOWARDS D/C GOALS. WILL CONTINUE TO MONITER.
[2019-02-08 08:15] VITALS: BP 117/60
[2019-02-08 19:23] VITALS: BP 135/77
--- NOTE | 2019-02-09 00:11 | NUR ---
PT ASSESSMENT COMPLETED AND VSS. MEDS GIVEN ORDERED AND WELL TOLERATED. FALL PRECAUTIONS IN PLACE. UP TO THE BATHROOM WITH ASST/GAIT/WALKER. SLIGHTLY UNSTEADY. PT DID NOT ALWAYS USE GOOD JUDGEMENT WHEN USING HER WALKER. SHE MOVED IT TO HER SIDE WHEN WASHING HER HANDS AND ALMOST TRIPPED OVER IT. ENC REPOSITION FREQUENTLY. SLEEPING WELL. WILL CONTINUE TO MONITOR FREQUENTLY.
[2019-02-09 04:57] LABS: HEMATOCRIT 36.4 % (37.0-47.0); HEMOGLOBIN 12.3 gm/dL (12.0-15.0); MCH 29.8 pg (26.0-34.0); MCHC 33.7 g/dL (28.0-37.0); MCV 88.5 fL (80.0-100.0); RBC 4.12 mil/uL (4.20-5.00); RDW 15.3 % (10.5-14.5); WBC 10.5 thou/uL (4.0-11.0)
[2019-02-09 05:06] LABS: CALCIUM 8.9 mg/dL (8.5-10.1); CREATININE 0.7 mg/dL (0.6-1.0); POTASSIUM 3.9 mmol/L (3.5-5.1)
[2019-02-09 07:53] VITALS: BP 149/79
--- NOTE | 2019-02-09 18:08 | NUR ---
ASSUMED CARE OF PATIENT AT APPROXIMATELY 0715. PATIENT IS A&OX4, VITAL SIGNS STABLE. PATIENT IS MODIFIED INDEPENDENT IN ROOM AND USES WALKER AND GAITBELT WITH 1 PERSON ASSIST. PAIN TREATED WITH MEDICATION PER ORDERS PRIOR TO THERAPIES. PATIENT TOOK MEDICATION THIS SHIFT WHOLE WITH REGULAR LIQUIDS WITHOUT ISSUES. FAMILY AT THE BEDSIDE IN THE EVENING, CALL LIGHT IN REACH AND FALL PRECAUTIONS IN PLACE. WILL CONTINUE TO MONITOR PATIENT.
--- NOTE | 2019-02-09 18:48 | NUR ---
ASSUMED CARE OF PATIENT AT APPROXIMATELY 0715. PATIENT IS A&OX4, VITAL SIGNS STABLE. PATIENT IS UP WITH 1 PERSON ASSIST WITH WALKER AND WHTIE GAIT BELT. PAIN TREATED WITH MEDICATION PER ORDERS PRIOR TO THERAPIES. PATIENT TOOK MEDICATION THIS SHIFT WHOLE WITH REGULAR LIQUIDS WITHOUT ISSUES. FAMILY AT THE BEDSIDE IN THE EVENING, CALL LIGHT IN REACH AND FALL PRECAUTIONS IN PLACE. WILL CONTINUE TO MONITOR PATIENT.
[2019-02-09 20:00] VITALS: BP 125/59
--- NOTE | 2019-02-10 01:58 | NUR ---
assumed care at approx 1900 evening 02/09. pt alert and oriented x4, appropriate and cooperative. pt up to bathroom to void 3-4 times tonight and pt also incontinent of urine to pad. pt appears to be sleeping soundly in between bathroom trips. bed alarm on and call light in reach. will continue to monitor.
[2019-02-10 08:19] VITALS: BP 117/64
--- NOTE | 2019-02-10 09:35 | NUR ---
ASSUMED CARE AT 0700. PATIENT IS ALERT AND ORIENTED X4. PATIENT UREÑA'S, PHARMACEUTICAL PROCESS ENGINEER ARE EQUAL. LUNGS ARE CLEAR , ABD IS SOFT WITH BSX4. UP WITH ASSIST OF 1 STAFF TO BATHROOM TO VOID. UP IN W/C FOR BREAKFAST. FALL AND SAFETY PROTOTCOLS INPLACE. DENIES ANY PAIN. CONTINUE POC. WILL CONTINUE TO MONITER.
--- NOTE | 2019-02-10 15:19 | HC ---
[facility] [place] [address] [place] [address] CONSULTATION Name: MORENO VALVERDE Room #: 512-P [facility] M.R.#: [id number] Admission: 01/23/19 ������������������ Attend Phys: Samir Bustamante MD Discharge: ������������������ Date of : 46 Report #: [id number] THIS REPORT FOR: //name// CC: Samir Smith DATE OF SERVICE: 01/28/2019 NEUROBEHAVIORAL STATUS EXAM. ATTENDING PHYSICIAN: Samir Bustamante MD CRUSHER MACHINE OPERATOR: Tani Hillman, PhD CLINICAL PRESENTATION: The patient is a 68-year-old -[place] female admitted to the [facility] for comprehensive treatment program to address deficits that are the result of a cerebrovascular accident. She was admitted on 01/19/2019 with a 4-day onset of lower extremity weakness, slurred speech and falls. The patient was initially found to have an acute, subacute left pontine infarction. Her diagnostic assessment on admission to rehab included left pontine acute versus subacute infarction, right-sided hemiparesis, dysarthria, severe degenerative arthritis, bilateral knees and complaints of arthritis in both feet, obesity, tobacco abuse and hyperlipidemia. A complete description of her medical condition and history along with medications can be found in her medical record. Neuropsychological consultation was requested to provide assistance in the assessment of cognitive and emotional status and provide recommendations and services. Prior to this most recent admission, the patient was living independently at her home. She is with 2 children from a family with 6 siblings. One sister and 2 brothers are living. 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 She is a college graduate. She does not report a history of treatment for depression/anxiety or alcohol/drug abuse. TECHNIQUES UTILIZED: Clinical interview, review of medical records, staff consultation and behavioral observation, mini mental status exam 2 standard version, clock drawing and verbal fluency assessment (letter and category). EXAMINATION FINDINGS: The patient was alert and cooperative with the assessment. She accurately described events surrounding her admission. There is no evidence of aphasia or thought disorder. She does not report auditory or visual hallucinations. Her thoughts are logical and goal oriented. She denies [facility] [address] [place] [address] CONSULTATION Name: MORENO VALVERDE Room #: 512-P [facility] M.R.#: [id number] Admission: 01/23/19 ������������������ Attend Phys: Samir Bustamante MD Discharge: ������������������ Date of : 46 Report #: [id number] symptoms of cognitive disorder and states that sleep, appetite, memory, word finding, anxiety and depression are all within normal limits. Her performance on the MMSE 2 brief version is within normal limits with a raw score of 15 of 16. She was 3/3 for initial registration, 5/5 for orientation to time and place and 2/3 for immediate recall of 3 items after a brief time delay and distraction. Performance on the MMSE 2 standard version is within normal limits with a raw score 27 of 30. She was 4/5 for serial 7's. The patient had difficulty in copying a simple geometric design. Clock drawing was within normal limits. Letter fluency was in the borderline range with a raw score of 15, T score 32, percentile rank of 4. Category fluency was extremely low with a raw score 23, T score 21 and percentile rank of less than 1. Overall, verbal fluency was extremely low with a raw score of 38, T score of 23 and percentile rank of less than 1. Moderate deficits are suggested in category fluency with mild to moderate deficits in letter fluency. Suggested is deficits and executive functioning along with verbal expression requiring complex planning. DIAGNOSTIC IMPRESSION: Mild neurocognitive disorder, due to vascular disease, without behavior disorder. RECOMMENDATIONS: The patient will likely benefit from assistance in a higher order executive functioning. Verbal fluency deficits would also benefit from the use of compensatory strategies to improve organization and semantic fluency when engaged in expressive speech. Follow up neuropsychological testing may help clarify the severity of deficits as well as compensation strategies. Thank you very much for allowing me to provide the consultation on this patient. ��������������������������������������������� <ELECTRONICALLY SIGNED> ���������������������������������������� By: Tani Hillman, PhD ��������������������������������������������� 02/10/19 1519 [id number] Tani Hillman, PhD /nt
[2019-02-10 19:20] VITALS: BP 145/72
--- NOTE | 2019-02-11 04:46 | NUR ---
Assumed care of pt at 1915. Pt alert and oriented x4. Has been continent through the night, calling for assist appropriately. Has appeared to be sleeping when checked on hourly rounds. Fall precautions in place.
[2019-02-11 07:35] VITALS: BP 128/70
--- NOTE | 2019-02-11 18:43 | NUR ---
ASSUMED CARE OF PATIENT AT APPROXIMATELY 0730. PATIENT A&O X4 AND VITAL SIGNS STABLE. PATIENT AMBULATES WITH 1 ASSIST WITH GAITBELT AND WALKER. PATIENT USED CALL LIGHT APPROPRAITELY. NO COMPLAINTS OF PAIN THIS SHIFT. SPOUSE AT THE BEDSIDE IN AFTERNOON. CALL LIGHT IN REACH AND FALL PRECAUTIONS IN PLACE. NURSE WILL CONTINUE TO MONITOR PATIENT.
[2019-02-11 20:27] VITALS: BP 116/62
[2019-02-12 09:45] VITALS: BP 124/74
[2019-02-12 12:43] VITALS: BP 124/74
--- NOTE | 2019-02-12 12:46 | NUR ---
PT'S FAMILY NOTIFIED [facility] OVER WEEKEND AND SPOKE WITH RAÚL IN ADM. SHE NOTIFIED DCP THIS AM OF NEEDING REFERRAL FAXED. SPOKE WITH RAÚL SHE RECEIVED REFERRAL AND WILL BE ABLE TO ACCEPT PT. AT DISCHARGE.ANTICIPATE DC 02/14.
[2019-02-12 19:40] VITALS: BP 126/69
--- NOTE | 2019-02-12 19:56 | NUR ---
ASSUMED CARE AT APPROX 0715. PATIENT A/O X 4. DENIES PAIN. PRE-MEDICATED WITH NAPROXEN PER 'S ORDERS. UP X1 SBA. WHITE BELT FALL PRECAUTIONS IN PLACE. PHYSICIAN CONTACTED REGARDING PATIENT'S REPORT OF EXCESSIVE SALIVA- SCOPOLAMINE PATCH ORDERED. PATIENT EDUCATED ON MEDICATION AND EXPECTED SIDE EFFECTS/PRECAUTIONS. PATIENT CALLS APPROPRIATELY FOR ASSISTANCE. D/C TUESDAY. PARTICIPATED IN THERAPY. WILL CONTINUE TO MONITOR.
--- NOTE | 2019-02-13 01:30 | NUR ---
PT ALERT AND ORIENTED X 4. AMB TO BR WITH WALKER AND ASSIST X 1 WITHOUT DIFFICULTY. HAS NOT BEEN INCONTINENT DURING THE NIGHT SO FAR. VOLTAREN GEL TO KNEES, ANKLES AND TOES. PT DENIES PAIN OR DISCOMFORT. STATED VOLTAREN WAS TO PREVENT PAIN. BED ALARM ON FOR SAFETY. PT APPEARS TO BE SLEEPING ON HOURLY ROUNDS.
[2019-02-13 07:30] VITALS: BP 123/54
--- NOTE | 2019-02-13 09:46 | NUR ---
ASSUMED CARE AT 0700. PATIENT IS ALERT AND ORIENTED X4. PATIENT UREÑA'S. CARRIER DRIVER ARE EQUAL. PATIENT IS WHITE BELT AND UP WITH ASSIST OF 1, GAITBELT AND WALKER TO THE BATHROOM. PATIENT IS VOIDING CHET COLORED URINE. FALL AND SAFETY PROTOCOLS IN PLACE. C/O PAIN IN HER KNEES, FEET, AND ANKLES. VOLTARIN GEL APPLIED. UP IN W/C FOR BREAKFAST. FALL AND SAFETY PROTOCOLS IN PLACE. CONTINUES TO PROGRESS TOWARDS D/C GOASLS. WILL CONTINUE TO MONITER.
--- NOTE | 2019-02-13 12:52 | NUR ---
team meeting, recommendation: 02/14, [facility] ( nurse, pt, ot, st ), [facility]. family got reg bed with bed rail, diet reg with thin, not to mix. information provided by 5n team for transport chair. will cont following as needed for dc needs.
[2019-02-13 19:33] VITALS: BP 118/55
--- NOTE | 2019-02-14 00:16 | NUR ---
PT ALERT AND ORIENTED X 4. AMB TO BR WITH WALKER AND ASSIST X 1 WITHOUT DIFFICULTY. PT DENIES PAIN OR DISCOMFORT. BED ALARM ON FOR SAFETY. PT APPEARS TO BE SLEEPING ON HOURLY ROUNDS.
[2019-02-14 07:30] VITALS: BP 115/67
--- NOTE | 2019-02-14 08:57 | NUR ---
ASSUMED CARE AT 0700. PATIENT IS ALERT AND ORIENTEDX4. PATIENT UREÑA'S. CUSTODIAL MAINTENANCE WORKER ARE EQUAL. LUNGS ARE CLEAR. ABD IS SOFT WITH BSX4. UP TO THE BATHROOM WITH WALKER AND GAIT BELT TO VOID CHET COLORED URINE. UP TO THE KITCHEN IN 501 TO COOK BREAKFAST. PATIENT AMBULATED FROM 501 TO THE DINING ROOM TO EAT HER SOFT EGGS, HERNANDEZ, TOAST, CRANBERRY JUICE, COFFEE. FALL AND SAFETY PROTOCOLS IN PLACE. DENIES ANY PAIN. CONTINUES TO PROGRESS TOWARDS D/C GOALS. WILL CONTINUE TO MONITER.
[2019-02-14 10:09] VITALS: BP 124/74
[2019-02-14] MEDS ORDERED: TRANSDERM-SCOP1 EACH TRANSDERM (14:44)
--- NOTE | 2019-02-14 15:15 | NUR ---
DISCHARGE INSTRUCTIONS GIVEN TO PATIENT AND . PATIENT AND FAMILY VERBALIZED UNDERSTANDING OF D/C INSTRUCTIONS. PATIENT AND FAMILY LEFT UNIT WITH ALL OF THEIR BELONGINGS, D/C INSTRUCTIONS, AND SCRIPTS.
--- NOTE | 2019-02-14 16:42 | NUR ---
FAXED DC ORDERS/SUMMARY TO [facility] HOME SPOKE WITH ADM. THEY RECEIVED DC ORDERS AND WILL NOTIFY PT.OF VISIT TIME.
--- NOTE | 2019-02-16 09:06 | H ---
[facility] [place] [address] HISTORY AND PHYSICAL Name: MORENO VALVERDE Room #: 512-P [facility] IN M.R.#: [id number] Admission: 01/23/19 ������������������ Attend Phys: Samir Bustamante MD Discharge: 02/14/19 ������������������ Date of : 46 Report #: [id number] THIS REPORT FOR: //name// CC: Samir Diazheather Smith DATE OF SERVICE: 01/23/2019 HISTORY AND PHYSICAL/POSTADMISSION PHYSICIAN EVALUATION: HISTORY OF PRESENT ILLNESS: The patient is a 68-year-old obese -[place] female originally admitted 01/19/2019 with 4-day onset of lower extremity weakness, slurred speech, and falls. She underwent imaging studies with Neurology involved and was found to have an acute, subacute left pontine infarct. She was noted to have a significant functional decline from her premorbid status and has now been admitted for acute in-hospital inpatient rehabilitation. PAST MEDICAL HISTORY: Includes obesity, severe degenerative arthritis of bilateral knees. She notes history of arthritis of both of her feet, history of prior tobacco abuse, and hyperlipidemia. HABITS: Current every day smoker of cigarettes, 1 pack per day. Alcohol use only on special occasions. No history of recreational drug abuse. FAMILY HISTORY: Not pertinent. ALLERGIES: CODEINE AND ERYTHROMYCIN. MEDICATIONS: Please see the full medication listing. This includes vitamins, herbals, and supplements. SOCIAL HISTORY: The patient lives at home with her , 15 stairs to the second floor bedroom. Did not utilize gait aids, was premorbidly independent with ADLs and IADLs, although she admits to not being very active due to bilateral knee arthritis. REVIEW OF SYSTEMS: She has arthritic complaints, which are chronic, knees and feet. No complaints of chest pain, shortness of breath, abdominal discomfort. No fever or chills. No nausea. Noted bowel or bladder changes. No numbness. No headache. PHYSICAL EXAMINATION: GENERAL: Obese. This is a 68-year-old -[place] female, in no obvious distress. The patient is alert. VITAL SIGNS: Last recorded temperature 98.2, pulse 75, respirations 20, blood [facility] [address] [place] [address] HISTORY AND PHYSICAL Name: MORENO VALVERDE Room #: 512-P [facility] IN M.R.#: [id number] Admission: 01/23/19 ������������������ Attend Phys: Samir Bustamante MD Discharge: 02/14/19 ������������������ Date of : 46 Report #: [id number] pressure 115/62. HEENT: Appeared to be benign. NEUROLOGIC: She has a slightly depressed right nasolabial fold. Follows commands without difficulty. Appears to be able to express herself without difficulty. CHEST: Sounded clear to auscultation. CARDIAC: Regular rate and rhythm. ABDOMEN: Bowel sounds positive, nontender, obese. EXTREMITIES: She has functional range of motion of the left upper and left lower extremity without obvious focal weakness. Would grade her strength at a 4/5. Right upper extremity strength is probably grade 3+/5, right lower extremity is probably a grade 3+/5. DTRs are trace. No focal calf swelling. Functionally, she has been max assist of 2 to come to stand, max assist to take a couple of steps. She does have the arthritic pain as well, which limits her. Max assist for bathing. ASSESSMENT: This is a 68-year-old -[place] female with the following problem list: 1. Left pontine acute versus subacute infarction. 2. Right-sided hemiparesis. 3. Dysarthria. 4. Severe degenerative arthritis, bilateral knees and complaints of arthritis both feet. 5. Significant Obesity. 6. Tobacco abuse. 7. Hyperlipidemia. PLAN: The patient is admitted for acute in-hospital inpatient rehabilitation. From a postadmission physician evaluation perspective, there are no relevant changes since the preadmission screening. Please see the above review of prior and current medical and functional conditions and comorbidities. Please see the patient's previous and current functional status. As far as risk of complications, the patient has multiple medical comorbidities as noted above. Initial plan of care involves the interdisciplinary acute inpatient rehabilitation program with goal of maximizing the patient's functional independence, so she can hopefully return back to her prior living situation. Measurable functional goals would be for her to improve as far as her basic functional transfers, mobility to at least initially get her independent at a walker/wheelchair level. Prognosis is reasonably good with estimated length of stay probably at least 2 weeks, likely 3 weeks. She does have multiple steps of stairs, which may be a barrier will need to further assess in that regard. Other barriers would include her multiple medical comorbidities and decreased functional status. The patient meets diagnostic criteria for an acute in-hospital inpatient rehabilitation stay. She meets medical necessity criteria and we will have the [address] [place] [address] HISTORY AND PHYSICAL Name: NICOLLEMORENO DWYER Room #: [facility]-P [facility] IN M.R.#: [id number] Admission: 01/23/19 ������������������ Attend Phys: Samir Bustamante MD Discharge: 02/14/19 ������������������ Date of : 46 Report #: [id number] dairy consultant physicians follow. She does have the tolerance for therapies and has appropriate discharge goals back to the home setting. ��������������������������������������������� <ELECTRONICALLY SIGNED> ���������������������������������������� By: Samir Bustamante MD ��������������������������������������������� 02/16/19 0906 [id number] Samir Bustamante MD /nt
--- NOTE | 2019-02-16 09:32 | PLAN ---
[facility] [place] [address] [place] [address] REHAB UNIT PLAN OF CARE Name: MORENO VALVERDE Room #: 512-P [facility] IN M.R.#: [id number] Admission: 01/23/19 ������������������ Attend Phys: Samir Bustamante MD Discharge: 02/14/19 ������������������ Date of : 46 Report #: [id number] THIS REPORT FOR: //name// CC: Samir Smith DATE OF SERVICE: 01/26/2019 PROGRESS NOTE/OVERALL PLAN OF CARE SUBJECTIVE: The patient is seen back today in followup. She was in no distress. Last recorded temperature 98.2, pulse 76, respirations 16, blood pressure 116/52. No focal calf swelling. She has been working in therapies. Transfers are mod assist. Gait has not been tested yet. Bed mobility is min assist. Lower body dressing is dependent. She has mild comprehensive deficits. She is on a regular diet with thin liquids. She does have some dysarthria with mild to moderate memory, cognition has moderate deficits. ASSESSMENT: 1. Left pontine acute versus subacute infarction. 2. Right-sided hemiparesis. 3. Dysarthria. 4. Severe degenerative arthritis, bilateral knees and complaints of arthritis both feet. 5. Significant obesity. 6. Tobacco abuse. 7. Hyperlipidemia. PLAN: The patient is continuing in the current rehabilitation therapy program. She does have a right lung infiltrate and is on IV antibiotics as per primary care. The overall plan of care is based on the preadmission screen, post-admission physician evaluation and information garnered from therapy assessments. 1. Estimated length of stay is probably longer likely 3 weeks as she is at a lower functional level. We will need to see how she progresses. 2. Medical prognosis is reasonably good. 3. Anticipated interventions includes the interdisciplinary acute inpatient rehabilitation program. 4. Anticipated functional outcomes would be for her to hopefully become independent at a walker level. She did admit she was not very active premorbidly with her bilateral knee arthritis and exogenous obesity. 5. Discharge destination is back home with her . There are 15 steps; however, to the second floor bedroom and that is going to need to be further assessed. 6. Expected therapy by discipline includes PT, OT and speech 1 hour per day [address] [address] REHAB UNIT PLAN OF CARE Name: MORENO VALVERDE Room #: 512-P [facility] IN ..#: [id number] Admission: 01/23/19 ������������������ Attend Phys: Samir Bustamante MD Discharge: 02/14/19 ������������������ Date of : 46 Report #: [id number] each five days a week throughout the duration of the acute inpatient rehabilitation stay. ��������������������������������������������� <ELECTRONICALLY SIGNED> ���������������������������������������� By: Samir Bustamante MD ��������������������������������������������� 02/16/19 0932 [id number] Samir Bustamante MD /PMT
== END 2019-02-14 15:43 | disposition home health service (06) | DRG 56 ==
LOC: ENTRNSPT 02-14 15:13 → EDTRNSPTSTS 02-14 15:15
PROVIDERS: Family Medicine; Nurse Practitioner Family; ADMIT Physical Medicine & Rehabilitation
DX: I69.351 Hemiplegia and hemiparesis following cerebral infarction affecting right dominant side (principal); I63.9 Cerebral infarction, unspecified; J18.9 Pneumonia, unspecified organism; Z68.41 Body mass index [BMI] 40.0-44.9, adult; R47.1 Dysarthria and anarthria; E66.9 Obesity, unspecified; E78.5 Hyperlipidemia, unspecified; M17.0 Bilateral primary osteoarthritis of knee; G31.84 Mild cognitive impairment of uncertain or unknown etiology; F17.210 Nicotine dependence, cigarettes, uncomplicated; M25.572 Pain in left ankle and joints of left foot; M25.571 Pain in right ankle and joints of right foot; R13.10 Dysphagia, unspecified; D72.829 Elevated white blood cell count, unspecified; M19.072 Primary osteoarthritis, left ankle and foot; M19.071 Primary osteoarthritis, right ankle and foot; Z88.1 Allergy status to other antibiotic agents; Z88.6 Allergy status to analgesic agent
CPT/HCPCS: 10112